=== PATIENT | female | born 2000 | race American Indian/Alaskan Native ===

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

== ENCOUNTER 2020-04-19 13:35 | Emergency (ER) | payer SELFPAY ==
[2020-04-19 13:49] VITALS: BP 112/63
--- NOTE | 2020-04-19 13:59 | Emergency Department Report ---
Abscess Boil HPI - HPI Chief Complaint: Skin/Abscess/Foreign Body Stated Complaint: VAGINAL PAIN Time Seen by Provider: 04/19/20 13:51 Duration: 3 Days Location: Perianal Severity: Moderate History: Yes Pain, No Fever, No Purulent Drainage, No Numbness, No Foreign Body, No Previous History, No Insect Bite HPI: Complains of vaginal abscess times past few days, no fever or systemic illness symptoms. Home Medications: Previous Rx's Medication Instructions Recorded Last Taken Type Cyclobenzaprine [Flexeril 10mg] 10 mg PO Q12H PRN #14 tablet 05/03/18 Unknown Rx Ibuprofen [Motrin] 600 mg PO Q8H PRN #12 tablet 05/03/18 Unknown Rx Sulfamethoxazole/Trimethoprim 1 each PO BID #20 tablet 04/19/20 Unknown Rx [Bactrim DS TAB] traMADoL [Ultram 50 MG tab] 50 mg PO Q4HR PRN #12 tablet 04/19/20 Unknown Rx Allergies/Adverse Reactions: Allergies Allergy/AdvReac Type Severity Reaction Status Date / Time No Known Allergies Allergy Verified 04/19/20 13:45 ED Review of Systems ROS: Stated complaint: VAGINAL PAIN Other details as noted in HPI Comment: All other systems reviewed and negative ED Past Medical Hx - Past Medical History Previous Medical History?: No - Surgical History Additional Surgical History: c section - Social History Smoking Status: Current Every Day Smoker Substance Use Type: Alcohol, Marijuana - Medications Home Medications: Home Medications Medication Instructions Recorded Confirmed Last Taken Type Cyclobenzaprine [Flexeril 10mg] 10 mg PO Q12H PRN #14 tablet 05/03/18 Unknown Rx Ibuprofen [Motrin] 600 mg PO Q8H PRN #12 tablet 05/03/18 Unknown Rx Sulfamethoxazole/Trimethoprim 1 each PO BID #20 tablet 04/19/20 Unknown Rx [Bactrim DS TAB] traMADoL [Ultram 50 MG tab] 50 mg PO Q4HR PRN #12 tablet 04/19/20 Unknown Rx ED Abscess Boil Physical Exam - Exam General: Vital signs noted. No distress. Alert and acting appropriately. Size: 4 cm (large ext L labial abscess) Exam: Yes Tenderness, Yes Fluctuance, Yes Surrounding Cellulites/Erythema, Yes Normal Neurologic Exam, Yes Normal Circulation, No Heart Murmur I & D Note - I & D Note I & D Note: Area prepped and draped in usual sterile fashion, iodine x3, local infiltration with 2 cc of 1% lidocaine resulting in adequate anesthesia. A single stab incision was made with an 11 blade with a significant amount of purulent bloody drainage. After drainage, abscess has significantly decreased in size, dressing applied. Patient tolerated well. Gabriela Garcia ED Course Vital Signs 04/19/20 13:48 Temperature 98.6 F Pulse Rate 107 H Respiratory 18 Rate Blood Pressure 112/63 O2 Sat by Pulse 95 Oximetry Critical care attestation.: If time is entered above; I have spent that time in minutes in the direct care of this critically ill patient, excluding procedure time. ED Medical Decision Making - Medical Decision Making Patient with labial abscess, status post I&D today, antibiotics, pain meds, outpatient follow-up, return if worse. - Differential Diagnosis Abscess, cellulitis ED Disposition Clinical Impression: Abscess of genital labia Disposition: - TO HOME OR SELFCARE Is pt being admited?: No Condition: Good Instructions: Skin Abscess Prescriptions: Sulfamethoxazole/Trimethoprim [Bactrim DS TAB] 1 each PO BID #20 tablet traMADoL [Ultram 50 MG tab] 50 mg PO Q4HR PRN #12 tablet PRN Reason: Pain Referrals: PRIMARY CAREMD [Primary Care Provider] - 3-5 Days KASSANDRA PANTOJA MD [Staff Physician] - 3-5 Days Time of Disposition: 14:43
[2020-04-19] MEDS ORDERED: LIDOCAINE (1%) 10 MG/1 ML VIAL 20 ML MDV INFILTRATI ONE (14:14)
== END 2020-04-19 16:12 | disposition home or self-care (01) ==
LOC: ED 13:35
DX: N76.4 Abscess of vulva (principal); F12.90 Cannabis use, unspecified, uncomplicated; F17.200 Nicotine dependence, unspecified, uncomplicated; Z79.899 Other long term (current) drug therapy; Z98.890 Other specified postprocedural states